=== PATIENT | female | born 1995 | race Hispanic/Latino ===

== ENCOUNTER 2020-08-28 09:57 | Inpatient (IN) | payer MEDICAID, SELFPAY ==
[2020-08-28 11:35] VITALS: BMI 33.5
[2020-08-28] MEDS ORDERED: hydrALAZINE 20 MG/ML VIAL SLOW IVP PRN ×2 (11:37→21:38)
[2020-08-28] MEDS ORDERED: Ibuprofen 800 MG TAB PO PRN (11:37)
[2020-08-28] MEDS ORDERED: Ondansetron PF 4 MG/2 ML Vial IVP PRN ×2 (11:37→21:38)
[2020-08-28] MEDS ORDERED: Promethazine HCl 25 MG/ML VIAL IM PRN (11:37)
[2020-08-28] MEDS ORDERED: Carboprost 250 MCG/ML AMP IM PRN (11:37)
[2020-08-28] MEDS ORDERED: Misoprostol 200 MCG TAB PR PRN (11:37)
[2020-08-28] MEDS ORDERED: Diphenoxylate HCl/Atropine Tablet PO PRN (11:37)
[2020-08-28] MEDS ORDERED: NS / Oxytocin 40 units/1000ml 1,000 ML IV PRN (11:37)
[2020-08-28] MEDS ORDERED: Butorphanol Tartrate 1 MG/ML VIAL SLOW IVP PRN (11:37)
[2020-08-28] MEDS ORDERED: Methylergonovine 0.2 MG/ML VIAL IM PRN (11:37)
[2020-08-28] MEDS ORDERED: HYDROcodone/Acetaminophen 5/325 mg Tablet PO PRN ×3 (11:37→21:38)
[2020-08-28] MEDS ORDERED: Lidocaine 1% (PF) 30 ML VIAL SC PRN (11:37)
[2020-08-28] MEDS ORDERED: NS w/ Oxytocin 30 units 500 ML ONE ×2 (11:54→21:04)
[2020-08-28 12:02] LABS: Hemoglobin 11.2 g/dL (12.0-15.5); Mean Corpuscular HGB CONC 33.5 g/dL (32.0-36.0); Mean Corpuscular Hemoglobin 31.2 pg (27.0-33.0); Mean Platelet Volume 10.9 fl (7.4-10.4); Platelet Count 262 10x3/uL (150-450); RBC Distribution Width 12.4 % (11.5-14.5); Red Blood Cell (RBC) Count 3.59 10x6/uL (3.90-5.03); White Blood Cell (WBC) Count 8.1 10x3/uL (3.5-10.5)
[2020-08-28] MEDS ORDERED: Fentanyl 4 mcg/Bup 0.1% Cadd 100 ML ONE (15:36)
[2020-08-28 16:11] LABS: Hep B Surf Ag Non-Reactive S/CO (NonReactive); Syphilis Antibody Nonreactive (Nonreactive); Syphilis Antibody Index 0.03 S/CO (<1.00 Non-Reactive)
[2020-08-28 16:15] LABS: HBSAg Index 0.17 S/CO (0-0.99)
[2020-08-28] MEDS: Lactated Ringer's 1,000 ML IV SCH ×2 (16:16→23:07)
[2020-08-28] MEDS ORDERED: Milk Of Magnesia 30 ML UDCUP PO PRN (21:38)
[2020-08-28] MEDS ORDERED: Benzocaine-Menthol 82.5 ML CAN TOP PRN (21:38)
[2020-08-28] MEDS ORDERED: NS / Oxytocin 40 units/1000ml 1,000 ML IV SCH (21:38)
[2020-08-28] MEDS ORDERED: Bisacodyl 10 MG SUPP PR PRN (21:38)
[2020-08-28] MEDS ORDERED: Lanolin Ointment 7 GM TUBE TOP PRN (21:38)
[2020-08-28] MEDS ORDERED: Adacel (T-DAP) 0.5 ML SYRINGE IM ONE (21:38)
[2020-08-28] MEDS ORDERED: diphenhydrAMINE 25 MG CAP PO PRN (21:38)
[2020-08-28] MEDS ORDERED: NS w/ Oxytocin 30 units 500 ML IV SCH (21:45)
[2020-08-28] MEDS ORDERED: Docusate Calcium (SURFAK) 240 MG CAP PO SCH (22:00)
[2020-08-28] MEDS: Ibuprofen 800 MG TAB PO SCH (23:43)
[2020-08-29 00:53] LABS: SARS-CoV-2 PCR by NAA Not Detected (NotDetected)
[2020-08-29] MEDS: Ibuprofen 800 MG TAB PO SCH ×3 (05:52→22:51)
[2020-08-29] MEDS: Docusate Calcium (SURFAK) 240 MG CAP PO SCH ×2 (08:37→22:51)
[2020-08-29] MEDS: Prenatal Vitamin 1 TAB PO SCH (08:37)
[2020-08-29] MEDS: Ferrous Sulfate 325 MG TAB PO SCH ×2 (08:41→18:31)
[2020-08-29] MEDS ORDERED: Boostrix 0.5 ML (Tdap) VIAL IM ONE (09:00)
[2020-08-30] MEDS: Ibuprofen 800 MG TAB PO SCH (06:21)
[2020-08-30 07:49] VITALS: BP 101/64; TEMP 98.2
[2020-08-30] MEDS: Ferrous Sulfate 325 MG TAB PO SCH (09:03)
[2020-08-30] MEDS: Docusate Calcium (SURFAK) 240 MG CAP PO SCH (09:04)
[2020-08-30] MEDS: Prenatal Vitamin 1 TAB PO SCH (09:04)
== END 2020-08-30 10:10 | disposition home or self-care (01) | DRG 807 ==
LOC: CSHLD 09:57 → CSHPED 22:20
PROVIDERS: ADMIT Family Medicine; ATTEND Family Medicine
PROC: 10E0XZZ Delivery of Products of Conception, External Approach (ICD-10-PCS; principal; 2020-08-28)
PROC: 10907ZC Drainage of Amniotic Fluid, Therapeutic from Products of Conception, Via Natural or Artificial Opening (ICD-10-PCS; 2020-08-28)
DX: O63.1 Prolonged second stage (of labor) (principal); Z37.0 Single live birth; Z20.822 Contact with and (suspected) exposure to COVID-19; Z3A.38 38 weeks gestation of pregnancy
CPT/HCPCS: 36415; 51702; 85027; 86780; 86850; 86900; 86901; 87340; 87635; J2590; U0003; U0005

== ENCOUNTER 2025-01-21 12:30 | Day surgery (SDC) | payer OTHER ==
[2025-01-21 12:54] VITALS: BMI 34.2
[2025-01-21] MEDS ORDERED: hydrALAZINE 20 MG/ML VIAL SLOW IVP PRN (13:05)
== END 2025-01-21 16:13 | disposition home or self-care (01) ==
LOC: CSHLD/OP 12:30
PROVIDERS: ATTEND Family Medicine
DX: O26.853 Spotting complicating pregnancy, third trimester (principal); Z3A.36 36 weeks gestation of pregnancy
CPT/HCPCS: 87480; 87510; 87660; 99285

== ENCOUNTER 2025-01-24 15:58 | Inpatient (IN) | payer OTHER ==
[2025-01-24] MEDS ORDERED: hydrALAZINE 20 MG/ML VIAL SLOW IVP PRN (16:32)
[2025-01-24] MEDS: Acetaminophen 500 MG TAB PO SCH (16:54)
[2025-01-24 16:58] LABS: #Basophils Less than 0.03 10x3/uL (0.0-0.2); #Eosinophils Less than 0.03 10x3/uL (0.0-0.5); #Monocytes 0.97 10x3/uL (0.0-1.1); #Neutrophils 8.52 10x3/uL (1.5-8.4); %Basophils 0.2 % (0.0-2.0); %Eosinophils 0.1 % (0.0-6.0); %Lymphocytes 5.9 % (18.0-47.0); %Monocytes 9.4 % (0.0-10.0); %Neutrophils 83.0 % (40.0-75.0); Hematocrit 31.5 % (34.9-44.5); Hemoglobin 11.1 g/dL (12.0-15.5); Mean Corpuscular Hemoglobin 32.3 pg (27.0-33.0); Mean Corpuscular Volume 91.6 fL (81.6-98.3); Platelet Count 250 10x3/uL (150-450); Red Blood Cell (RBC) Count 3.44 10x6/uL (3.90-5.03); White Blood Cell (WBC) Count 10.27 10x3/uL (3.5-10.5)
[2025-01-24 16:59] LABS: Glucose, Urine (Dipstick) 50 mg/dL (Negative); Leukocyte Negative (Negative); Protein, Urine (Dipstick) 30 mg/dl (Neg-Trace); Specific Gravity, Urine 1.010 (1.005-1.030)
[2025-01-24] MEDS ORDERED: Ondansetron PF 4 MG/2 ML Vial IVP PRN (17:38)
[2025-01-24 17:46] LABS: CAUTI Indications for Culture Pelvic or flank pain; WBC/HPF 0-3 HPF (0-3)
[2025-01-24 17:48] LABS: Bacteria/HPF None Seen HPF (None Seen); Mucous/LPF 2+ LPF (<2+)
[2025-01-24 17:49] LABS: Urine Culture Reflex No No
[2025-01-24 18:49] VITALS: BMI 38.2
[2025-01-24] MEDS: Oseltamivir 75 MG CAP PO SCH (19:30)
[2025-01-24] MEDS ORDERED: Oseltamivir 75 MG CAP PO SCH (21:00)
[2025-01-24] MEDS: Acetaminophen 500 MG TAB PO PRN (22:58)
[2025-01-24 23:27] LABS: Fetal Membranes Rupture RUPTURE DETECTED (No Rupture)
[2025-01-25] MEDS: Methylergonovine 0.2 MG/ML VIAL IM SCH (07:31)
[2025-01-25 07:46] LABS: Analyzer IN Cardio CS NICU; RapidComm Collect By 2NO.KRF; pH (Cord, venous) 7.181 (7.250-7.350)
[2025-01-25] MEDS ORDERED: diphenhydrAMINE 50 MG/ML VIAL IVP PRN ×3 (08:21→09:15)
[2025-01-25] MEDS ORDERED: Meperidine HCl/PF 25 MG (1 mL) VIAL SLOW IVP PRN (08:21)
[2025-01-25] MEDS ORDERED: diphenhydrAMINE 50 MG/ML VIAL IM PRN ×3 (08:21→09:15)
[2025-01-25] MEDS ORDERED: diphenhydrAMINE 25 MG CAP PO PRN ×3 (08:21→09:15)
[2025-01-25] MEDS ORDERED: Ondansetron PF 4 MG/2 ML Vial IVP PRN ×4 (08:21→09:15)
[2025-01-25] MEDS: Azithromycin 500 MG VIAL ONE (08:22)
[2025-01-25] MEDS: CEFAZOLIN 2 GM VIAL ONE (08:24)
[2025-01-25] MEDS ORDERED: Communication Order-Pharmacy FS PRN ×2 (08:30→09:15)
[2025-01-25] MEDS ORDERED: fentaNYL Citrate/PF 55 ML IV SCH ×2 (08:30→14:58)
[2025-01-25] MEDS ORDERED: Ketorolac Tromethamine 30 MG (1 mL) VIAL IVP SCH (08:30)
[2025-01-25] MEDS ORDERED: Communication Order-Pharmacy FS SCH (08:30)
[2025-01-25] MEDS: fentaNYL Citrate/PF 55 ML IV SCH (09:43)
[2025-01-25] MEDS: Oxytocin 30 units/NS 500 ML 500 ML ONE (09:48)
[2025-01-25] MEDS: Hepatitis B Vaccine 10 MCG/0.5 ML SYR ONE (11:50)
[2025-01-25] MEDS: Erythromycin Base 0.5% Oint 1 GM TUBE ONE (11:50)
[2025-01-25] MEDS: SUCCINYLCHOLINE/SOD CL,ISO/PF 200 MG/10 ML SYRINGE FS ONE (11:50)
[2025-01-25] MEDS: PROPOFOL 20 ML ONE (11:50)
[2025-01-25] MEDS: Ketorolac Tromethamine 30 MG (1 mL) VIAL ONE (11:51)
[2025-01-25] MEDS: Oxytocin 10 UNITS/ML VIAL ONE ×2 (11:51)
[2025-01-25] MEDS: Rocuronium Bromide 10 MG/ML (10ML VIAL) ONE (11:51)
[2025-01-25] MEDS: Sevoflurane 250 ML INH ANEST BOTTLE ONE (11:51)
[2025-01-25] MEDS: SUGAMMADEX SODIUM 200 MG/2 ML VIAL ONE (11:51)
[2025-01-25] MEDS ORDERED: hydrALAZINE 20 MG/ML VIAL SLOW IVP PRN (14:01)
[2025-01-25] MEDS ORDERED: Meperidine HCl/PF 25 MG (1 mL) VIAL IM PRN (14:01)
[2025-01-25] MEDS ORDERED: Lanolin Ointment 7 GM TUBE TOP PRN (14:01)
[2025-01-25] MEDS ORDERED: Bisacodyl 10 MG SUPP PR PRN (14:01)
[2025-01-25] MEDS: Boostrix 0.5 ML (Tdap) VIAL (>/=7 yrs of age) IM ONE (14:38)
[2025-01-25] MEDS: Ibuprofen 800 MG TAB PO SCH (14:38)
[2025-01-25] MEDS: Acetaminophen 500 MG TAB PO PRN (20:35)
[2025-01-25] MEDS: Ferrous Sulfate 325 MG TAB PO SCH (20:36)
[2025-01-25] MEDS: Oseltamivir 75 MG CAP PO SCH (21:33)
[2025-01-26 04:03] LABS: Hematocrit 22.1 % (34.9-44.5); Hemoglobin 7.8 g/dL (12.0-15.5); Mean Corpuscular Hemoglobin 32.9 pg (27.0-33.0); Mean Corpuscular Volume 93.2 fL (81.6-98.3); Platelet Count 172 10x3/uL (150-450); Red Blood Cell (RBC) Count 2.37 10x6/uL (3.90-5.03); White Blood Cell (WBC) Count 13.65 10x3/uL (3.5-10.5)
[2025-01-26] MEDS: HYDROcodone/Acetaminophen 5/325 mg Tablet PO PRN (08:46)
[2025-01-27] MEDS: Simethicone Chewable 80 MG TAB PO PRN (17:03)
[2025-01-28] MEDS: HYDROcodone/Acetaminophen 5/325 mg Tablet PO PRN (08:44)
[2025-01-28 19:55] VITALS: TEMP 98.7
[2025-01-29 08:33] VITALS: BP 130/62
== END 2025-01-29 15:15 | disposition home or self-care (01) | DRG 788 ==
LOC: CSHLD/OP 15:58 → CSHLD 01-25 00:29 → UNDOADMIN 01-25 00:29 → CSHLD 01-25 00:44 → CSHPED 01-25 10:50
PROVIDERS: ADMIT Family Medicine; ATTEND Family Medicine
PROC: 10D00Z1 Extraction of Products of Conception, Low, Open Approach (ICD-10-PCS; principal; 2025-01-25)
PROC: 3E0234Z Introduction of Serum, Toxoid and Vaccine into Muscle, Percutaneous Approach (ICD-10-PCS; 2025-01-25)
PROC: 4A1HXCZ Monitoring of Products of Conception, Cardiac Rate, External Approach (ICD-10-PCS; 2025-01-25)
DX: O75.2 Pyrexia during labor, not elsewhere classified (principal); O99.892 Other specified diseases and conditions complicating childbirth; O36.8330 Maternal care for abnormalities of the fetal heart rate or rhythm, third trimester, not applicable or unspecified; R05.9 Cough, unspecified; R10.9 Unspecified abdominal pain; Z3A.37 37 weeks gestation of pregnancy; Z79.899 Other long term (current) drug therapy; Z37.0 Single live birth; Z23 Encounter for immunization
CPT/HCPCS: 36415; 51702; 81001; 82805; 84112; 85025; 85027; 87070; 87076; 87077; 87186; 87205; 87428; 88307; 99285; C1889; J1885; J2210; J2590; J2704; J3010; J7120

== ENCOUNTER 2025-02-03 22:31 | Inpatient (IN) | payer OTHER ==
[2025-02-03 23:46] LABS: Hematocrit 20.7 % (34.9-44.5); Hemoglobin 7.0 g/dL (12.0-15.5); Mean Corpuscular Hemoglobin 31.5 pg (27.0-33.0); Mean Corpuscular Volume 93.2 fL (81.6-98.3); Platelet Count 598 10x3/uL (150-450); Red Blood Cell (RBC) Count 2.22 10x6/uL (3.90-5.03); White Blood Cell (WBC) Count 18.57 10x3/uL (3.5-10.5)
[2025-02-03 23:49] LABS: ALT (SGPT) 17 U/L (Less than 34); AST (SGOT) 27 U/L (11-34); Albumin 2.1 g/dL (3.1-4.5); Alkaline Phosphatase 103 U/L (40-110); Anion Gap 14 mmol/L (10-20); BUN (Urea Nitrogen) 6 mg/dL (7.0-18.7); Bilirubin, Total 0.2 mg/dL (0.3-1.2); Calc. Creatinine Clearance 0 mL/min (70-130); Calcium 8.4 mg/dL (7.8-10.44); Carbon Dioxide 24 mmol/L (22-29); Chloride 104 mmol/L (98-107); Globulin 4.2 g/dL (2.4-3.5); Glucose 137 mg/dL (70-105); Potassium 2.8 mmol/L (3.5-5.1); Sodium 139 mmol/L (136-145)
[2025-02-04 00:06] LABS: MDiff Complete? YES; Nucleated RBC (Manual Ct) 2 % (0); Platelet Adequacy Comment Appears Increased; Spherocytes SLIGHT = 1-5 cells (100X) (None Seen)
[2025-02-04 00:51] LABS: Glucose, Urine (Dipstick) Normal (Negative); Leukocyte 500 (Negative); Protein, Urine (Dipstick) 30 mg/dl (Neg-Trace); Specific Gravity, Urine 1.005 (1.005-1.030)
[2025-02-04 01:23] LABS: Bacteria/HPF 2+ HPF (None Seen); CAUTI Indications for Culture Pelvic or flank pain; RBC/HPF 0-3 HPF (0-3)
[2025-02-04 01:25] LABS: Urine Culture Reflex No No
[2025-02-04] MEDS ORDERED: Potassium Chloride 20 MEQ (100 mL) BAG ONE (02:53)
[2025-02-04 04:33] VITALS: BMI 33.2
[2025-02-04] MEDS ORDERED: HYDROcodone/Acetaminophen 5/325 mg Tablet PO PRN (09:26)
[2025-02-04] MEDS: Ibuprofen 800 MG TAB PO SCH (10:09)
[2025-02-04] MEDS: HYDROcodone/Acetaminophen 5/325 mg Tablet PO PRN (10:10)
[2025-02-04] MEDS ORDERED: Iopamidol 370 76% 100 ML VIAL ONE (10:51)
[2025-02-04] MEDS: Ferrous Sulfate 325 MG TAB PO SCH (17:59)
[2025-02-06] MEDS ORDERED: Iopamidol 370 76% 100 ML VIAL ONE (10:11)
[2025-02-06 10:40] LABS: ALT (SGPT) 21 U/L (Less than 34); AST (SGOT) 40 U/L (11-34); Albumin 2.2 g/dL (3.1-4.5); Alkaline Phosphatase 89 U/L (40-110); Anion Gap 12 mmol/L (10-20); BUN (Urea Nitrogen) 6 mg/dL (7.0-18.7); Bilirubin, Total 0.2 mg/dL (0.3-1.2); Calc. Creatinine Clearance 208 mL/min (70-130); Calcium 8.1 mg/dL (7.8-10.44); Carbon Dioxide 23 mmol/L (22-29); Chloride 112 mmol/L (98-107); Globulin 3.7 g/dL (2.4-3.5); Glucose 90 mg/dL (70-105); Potassium 3.4 mmol/L (3.5-5.1); Sodium 144 mmol/L (136-145)
[2025-02-06 10:45] LABS: Hematocrit 21.8 % (34.9-44.5); Hemoglobin 6.9 g/dL (12.0-15.5); Mean Corpuscular Hemoglobin 30.5 pg (27.0-33.0); Mean Corpuscular Volume 96.5 fL (81.6-98.3); Platelet Count 683 10x3/uL (150-450); Red Blood Cell (RBC) Count 2.26 10x6/uL (3.90-5.03); White Blood Cell (WBC) Count 9.82 10x3/uL (3.5-10.5)
[2025-02-06 11:42] LABS: Polychromasia SLIGHT = 2-3 cells (100X) (0-2/hpf)
[2025-02-06 11:45] LABS: MDiff Complete? YES; Platelet Adequacy Comment Appears Increased
[2025-02-06 11:46] LABS: Reflex for Review?? YES
[2025-02-08 11:56] VITALS: BP 105/65; TEMP 97.9
== END 2025-02-08 15:55 | disposition home or self-care (01) | DRG 776 ==
LOC: CSHERS 22:31 → EEVIPCON 22:31 → CSHPP 02-04 01:44
PROVIDERS: ADMIT Family Medicine; ATTEND Family Medicine
DX: O86.00 Infection of obstetric surgical wound, unspecified (principal); Z98.891 History of uterine scar from previous surgery; Z79.899 Other long term (current) drug therapy
CPT/HCPCS: 36415; 72193; 74177; 80053; 81001; 83605; 85025; 85060; 87040; 87086; 87428; 93005; 94760; 96365; 96375; J2543; J3480; J7030; Q9967